=== PATIENT | male | born 1995 | race Caucasian/White ===

== ENCOUNTER 2018-02-27 20:49 | Emergency (ER) | payer BC, OTHER ==
[2018-02-27 21:39] VITALS: BP 121/73
--- NOTE | 2018-02-27 22:10 | UC ---
Hand/Wrist HPI - HPI Summary HPI Summary: Pt c/o right thumb pain s/p injury from work. 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 Pt thinks that his thumb was dislocated because he heard a "pop" and then pushed thumb "back into place". - History Of Current Complaint Chief Complaint: UCUpperExtremity Stated Complaint: WC-RIGHT THUMB INJURY Time Seen by Provider: 02/27/18 21:40 Hx Obtained From: Patient ?: No Onset/Duration: Sudden Onset, Still Present Severity Initially: Moderate Severity Currently: Mild Pain Intensity: 3 Pain Scale Used: 0-10 Numeric Character Of Pain: Dull, Aching Aggravating Factor(s): Movement Alleviating Factor(s): Rest Associated Signs And Symptoms: Positive: Swelling Related History: Dominant Hand Right - Risk Factors Compartment Syndrome Risk Factors: Pain - Allergies/Home Medications Allergies/Adverse Reactions: Allergies Allergy/AdvReac Type Severity Reaction Status Date / Time No Known Allergies Allergy Verified 02/27/18 21:31 Home Medications: Home Medications SUMAtriptan TAB* [Imitrex TAB*] 25 mg PO SEE INSTRUCTIONS 02/27/18 [History Confirmed 02/27/18] PMH/Surg Hx/FS Hx/Imm Hx Previously Healthy: Yes - Surgical History Surgical History: None - Family History Known Family History: Positive: Cardiac Disease - Social History Occupation: Employed Full-time Lives: With Family Alcohol Use: Occasionally Substance Use Type: None Smoking Status (MU): Never Smoked Tobacco Have You Smoked in the Last Year: No - Immunization History Vaccination Up to Date: Yes Review of Systems Constitutional: Negative Skin: Bruising Eyes: Negative ENT: Negative Respiratory: Negative Cardiovascular: Negative Gastrointestinal: Negative Genitourinary: Negative Motor: Negative Neurovascular: Negative Musculoskeletal: Arthralgia, Myalgia Neurological: Negative Psychological: Negative Is Patient Immunocompromised?: No All Other Systems Reviewed And Are Negative: Yes Physical Exam Triage Information Reviewed: Yes Appearance: Well-Appearing Vital Signs: Initial Vital Signs Temp 98.6 F 02/27/18 21:33 Pulse 73 02/27/18 21:33 Resp 18 02/27/18 21:33 BP 121/73 02/27/18 21:33 Pulse Ox 99 02/27/18 21:33 Vital Signs Reviewed: Yes Eye Exam: Normal ENT: Positive: Hearing grossly normal Dental Exam: Normal Neck exam: Normal Respiratory Exam: Normal Cardiovascular Exam: Normal Musculoskeletal Exam: Normal Musculoskeletal: Positive: Edema @ - right thumb/base Neurological Exam: Normal Psychological Exam: Normal Skin Exam: Normal Diagnostics - Radiology No standard instances Radiology Interpretation Completed By: Radiologist - xray not read by radiologist Hand/Wrist Course/Dx - Differential Dx/Diagnosis Differential Diagnosis/HQI/PQRI: Contusion, Fracture, Sprain Provider Diagnoses: right thumb sprain Discharge - Sign-Out/Discharge Documenting (check all that apply): Patient Departure All imaging exams completed and their final reports reviewed: No - Discharge Plan Condition: Stable Disposition: HOME Patient Education Materials: Finger Sprain (ED), Ice Pack Application (ED) Referrals: Roland Oneal MD [Primary Care Provider] - If Needed Andres Pacheco MD [Medical Doctor] - If Needed - Billing Disposition and Condition Condition: STABLE Disposition: Home
--- NOTE | 2018-02-28 13:15 | RAD ---
INDICATION: Right thumb injury COMPARISON: None TECHNIQUE: 3 views of the right thumb were obtained. FINDINGS: The bones are normal alignment. Joint spaces appear maintained. No fracture is seen. IMPRESSION: No acute fracture or dislocation. If the patient's symptoms persist, follow-up imaging is recommended. R1
--- NOTE | 2018-02-28 13:40 | UC ---
- Progress Note Progress Note: Patient Name: BELIA HALL Medical Record#: [id number] Ordering Physician: Frances Ontiveros [employer]IMMER [employer] Acct.#: [id number] : 1995 Age: 22 Sex: M Location: [facility]RGENT [facility] Exam Date: 02/27/182142 ADM Status: [facility] ER Order Information: THUMB RIGHT Accession Number: [id number] CPT: 79392 INDICATION: Right thumb injury COMPARISON: None TECHNIQUE: 3 views of the right thumb were obtained. FINDINGS: The bones are normal alignment. Joint spaces appear maintained. No fracture is seen. IMPRESSION: No acute fracture or dislocation. If the patient's symptoms persist, follow-up imaging is recommended. R1 <Electronically signed by Kalia Roland MD in OV> 02/28/18 1311 Dictated By: Kalia Roland MD Dictated Date/Time: 02/28/18 1311 Transcribed Date/Time: 02/28/18 1310 Copy to: CC:Roland Oneal MD; Luda Palacio MD; Frances Ontiveros NP Imaging - [facility] Imaging [facility] Urgent [facility] [address] [address] ph [phone] ph ([phone]) ph ([phone]) This report is only to be considered final once signed by the Provider(s) as displayed in the "<Electronically Signed by >" field (s). Absence of a signature indicates the report is in a draft status and still needs to be finalized. In the event this document was created by someone other than the signing Provider, the individual initiating the document will be listed in the "Entered by:" or "Dictated by:" ortez. 1 of 1 Discharge - Sign-Out/Discharge Documenting (check all that apply): Post-Discharge Follow Up All imaging exams completed and their final reports reviewed: Yes - Discharge Plan Condition: Stable Disposition: HOME Patient Education Materials: Finger Sprain (ED), Ice Pack Application (ED) Referrals: Roland Oneal MD [Primary Care Provider] - If Needed Andres Pacheco MD [Medical Doctor] - If Needed - Billing Disposition and Condition Condition: STABLE Disposition: Home
== END 2018-02-27 22:02 | disposition home or self-care (01) ==
LOC: UCCORT 20:49
DX: S63.601A Unspecified sprain of right thumb, initial encounter (principal); W22.8XXA Striking against or struck by other objects, initial encounter; Y92.9 Unspecified place or not applicable
CPT/HCPCS: 99211; G0463

== ENCOUNTER 2018-07-09 16:04 | Emergency (ER) | payer OTHER ==
[2018-07-09 16:26] VITALS: BP 145/96
[2018-07-09] MEDS ORDERED: BSS OPTH.SOL* BTL ONE (16:28)
[2018-07-09] MEDS ORDERED: Tetracaine 0.5% OPTH.SOL 4 ML* 1 DROP BTL ONE ×2 (16:28→16:33)
[2018-07-09] MEDS ORDERED: Fluorescein Sodium TOPICAL* 1 MG TEST STRIP ONE (16:29)
[2018-07-09] MEDS ORDERED: Fluorescein Sodium TOPICAL* 1 MG TEST STRIP OPHTHALMIC ONE (16:33)
--- NOTE | 2018-07-09 16:45 | ED ---
Throat Pain/Nasal Congestion - HPI Summary HPI Summary: 23 yr old male walking out side felt like something blew in his left eye this afternoon. 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 He does not wear contact lenses. He has no other complaints. No blur vision. Feels like eye irritated and something left in it. - History of Current Complaint Chief Complaint: UCEye Time Seen by Provider: 07/09/18 16:33 - Allergies/Home Medications Allergies/Adverse Reactions: Allergies Allergy/AdvReac Type Severity Reaction Status Date / Time No Known Allergies Allergy Verified 07/09/18 16:26 PMH/Surg Hx/FS Hx/Imm Hx Infectious Disease History: No Infectious Disease History: Denies: Traveled Outside the [place] in Last 30 Days - Family History Known Family History: Positive: Cardiac Disease - Social History Occupation: Employed Full-time Alcohol Use: Occasionally Substance Use Type: Reports: None Smoking Status (MU): Never Smoked Tobacco Have You Smoked in the Last Year: No Review of Systems Constitutional: Negative Positive: Other - irritation left eye All Other Systems Reviewed And Are Negative: Yes Physical Exam Triage Information Reviewed: Yes Vital Signs On Initial Exam: Initial Vitals Temp Pulse Resp BP Pulse Ox 98.3 F 81 15 145/96 100 07/09/18 16:24 07/09/18 16:24 07/09/18 16:24 07/09/18 16:24 07/09/18 16:24 Vital Signs Reviewed: Yes Appearance: Positive: Well-Appearing, No Pain Distress Skin: Positive: Warm, Skin Color Reflects Adequate Perfusion Head/Face: Positive: Normal Head/Face Inspection Eyes: Positive: EOMI, ARNOL, Conjunctiva Inflammed - left, Other: - wood lamp and flouro exam is negative for uptake. no FB on lid eversion. ENT: Positive: Pharynx normal Respiratory/Lung Sounds: Positive: Clear to Auscultation, Breath Sounds Present Cardiovascular: Positive: RRR. Negative: Murmur Abdomen Description: Negative: Distended Musculoskeletal: Positive: Strength/ROM Intact Neurological: Positive: Sensory/Motor Intact, Alert, Oriented to Person Place, Time, CN Intact II-III Psychiatric: Positive: Normal Diagnostics - Vital Signs Vital Signs Temp Pulse Resp BP Pulse Ox 07/09/18 16:24 98.3 F 81 15 145/96 100 - Laboratory Lab Statement: Any lab studies that have been ordered have been reviewed, and results considered in the medical decision making process. EENT Course/Dx - Course Course Of Treatment: 23 yr old with conjunctivitis left eye, no fb or corneal abrasion on exam. DC home on sulfa eye drops. - Diagnoses Provider Diagnoses: Conjunctivitis, Hypertension Discharge - Sign-Out/Discharge Documenting (check all that apply): Patient Departure All imaging exams completed and their final reports reviewed: No Studies - Discharge Plan Condition: Good Disposition: HOME Prescriptions: Sulfacetamide 10 % OPTH.DAYSI* [Sulamyd 10% Opth*] 1 drop LEFT EYE Q4H #1 btl Patient Education Materials: Hypertension (ED), Conjunctivitis (ED) Referrals: Roland Oneal MD [Primary Care Provider] - 2 Days Livia Talavera MD [Medical Doctor] - 1 Day - Billing Disposition and Condition Condition: GOOD Disposition: Home
== END 2018-07-09 16:53 | disposition home or self-care (01) ==
LOC: UCCORT 16:04
DX: H10.9 Unspecified conjunctivitis (principal); I10 Essential (primary) hypertension
CPT/HCPCS: 99212; A9270-GY; G0463